=== PATIENT | female | born 1985 | race American Indian/Alaskan Native ===

== ENCOUNTER 2018-11-25 14:11 | Emergency (ER) | payer SELFPAY ==
--- NOTE | 2018-11-25 14:53 | Emergency Department Report ---
Blank Doc - Documentation Documentation: This is a 33-year-old female that presents with chest pain. Denies any SOB. This initial assessment/diagnostic orders/clinical plan/treatment(s) is/are subject to change based on patient's health status, clinical progression and re- assessment by fellow clinical providers in the ED. Further treatment and workup at subsequent clinical providers discretion. Patient/guardians urged not to elope from the ED as their condition may be serious if not clinically assessed and managed. Initial orders include: 1- Patient sent to [facility] for further evaluation and treatment 2- labs 3- EKG 4- CXR
[2018-11-25 15:30] LABS: Basophils # (Auto) 0.1 K/mm3 (0.0-0.1); Basophils % (Auto) 0.8 % (0.0-1.8); Eosinophils % (Auto) 0.5 % (0.0-4.3); Hematocrit 34.6 % (30.3-42.9); Hemoglobin 11.7 gm/dl (10.1-14.3); Lymphocytes # (Auto) 3.5 K/mm3 (1.2-5.4); Lymphocytes % (Auto) 48.1 % (13.4-35.0); Mean Corpuscular HGB Conc 34 % (30-34); Mean Corpuscular Volume 91 fl (79-97); Monocytes # (Auto) 0.4 K/mm3 (0.0-0.8); Monocytes % (Auto) 6.2 % (0.0-7.3); Platelet Count 199 K/mm3 (140-440); Red Blood Count 3.81 M/mm3 (3.65-5.03); Red Cell Distribution Width 13.6 % (13.2-15.2)
[2018-11-25 15:39] LABS: BUN/Creatinine Ratio 20; Blood Urea Nitrogen 16 mg/dL (7-17); Calcium 9.1 mg/dL (8.4-10.2); Hemolysis Index 6; INR 1.04 (0.87-1.13)
[2018-11-25 15:40] LABS: Partial Thromboplastin Time 26.5 Sec. (24.2-36.6)
--- NOTE | 2018-11-25 16:48 | XRay Report ---
PROCEDURE: XR CHEST ROUTINE 2V TECHNIQUE: PA and lateral chest radiographs were obtained. HISTORY: Chest Pain COMPARISONS: None. FINDINGS: Heart: Normal. Mediastinum/Vessels: Normal. Lungs/Pleural space: Normal. Bony thorax: No acute osseous abnormality. IMPRESSION: Normal examination. This document is electronically signed by Arya Ramos MD., November 25 2018 04:46:16 PM ET
--- NOTE | 2018-11-25 18:24 | Emergency Department Report ---
ED Chest Pain HPI - General Chief Complaint: Chest Pain Stated Complaint: LEO/CHEST PAIN Time Seen by Provider: 11/25/18 14:52 Source: patient Mode of arrival: Ambulatory Limitations: No Limitations - History of Present Illness Initial Comments: This is a 33-year-old female with no prior medical history who takes no medications for any medical problems presents to ED complaining of left-sided sharp, intermittent pain localized to her left chest area with no radiation. Patient states the first occurrence. She denies trauma, fever, chills, nausea, vomiting, abdominal pain, cough MD Complaint: chest pain -: Sudden Pain Location: left chest Pain Radiation: none Severity: mild Severity scale (0 -10): 4 Quality: aching, sharp Worsens With: nothing Other Symptoms: denies: cough, fever, rash - Related Data Home Medications Medication Instructions Recorded Confirmed Last Taken Norgestimate-Ethinyl Estradiol 1 each PO DAILY 12/18/15 12/27/15 12/26/15 [Bdo-Ef-Oxhcuphq Tablet] Previous Rx's Medication Instructions Recorded Last Taken Type HYDROcodone/APAP 5-325 [[place] 1 each PO Q6HR PRN #30 tablet 12/27/15 Unknown Rx 5/325] Ibuprofen [Motrin 600 MG tab] 600 mg PO Q8H PRN #30 tablet 12/27/15 Unknown Rx Cyclobenzaprine [Flexeril] 10 mg PO QHS PRN #15 tablet 11/25/18 Unknown Rx Naproxen [Naprosyn TAB] 500 mg PO BID #30 tablet 11/25/18 Unknown Rx Allergies Allergy/AdvReac Type Severity Reaction Status Date / Time No Known Allergies Allergy Verified 12/18/15 16:05 Heart Score - HEART Score History: Slightly suspicious EKG: Normal Age: < 45 Risk factors: No known risk factors Troponin: < normal limit HEART Score: 0 ED Review of Systems ROS: Stated complaint: LEO/CHEST PAIN Other details as noted in HPI Comment: All other systems reviewed and negative ED Past Medical Hx - Past Medical History Previous Medical History?: Yes Hx Hypertension: No Hx Heart Attack/AMI: No Hx Liver Disease: No Hx Renal Disease: No Hx Headaches / Migraines: Yes Hx Seizures: No Hx Asthma: No - Surgical History Past Surgical History?: No - Social History Smoking Status: Never Smoker Substance Use Type: None - Medications Home Medications: Home Medications Medication Instructions Recorded Confirmed Last Taken Type Norgestimate-Ethinyl Estradiol 1 each PO DAILY 12/18/15 12/27/15 12/26/15 History [Wax-Pv-Edkzvnwd Tablet] HYDROcodone/APAP 5-325 [[place] 1 each PO Q6HR PRN #30 tablet 12/27/15 Unknown Rx 5/325] Ibuprofen [Motrin 600 MG tab] 600 mg PO Q8H PRN #30 tablet 12/27/15 Unknown Rx Cyclobenzaprine [Flexeril] 10 mg PO QHS PRN #15 tablet 11/25/18 Unknown Rx Naproxen [Naprosyn TAB] 500 mg PO BID #30 tablet 11/25/18 Unknown Rx ED Physical Exam - General Limitations: No Limitations General appearance: alert, in no apparent distress - Head Head exam: Present: atraumatic, normocephalic - Eye Eye exam: Present: normal appearance - ENT ENT exam: Present: mucous membranes moist - Neck Neck exam: Present: normal inspection - Respiratory Respiratory exam: Present: normal lung sounds bilaterally. Absent: respiratory distress - Cardiovascular Cardiovascular Exam: Present: regular rate, normal rhythm. Absent: systolic murmur, diastolic murmur, rubs, gallop - GI/Abdominal GI/Abdominal exam: Present: soft, normal bowel sounds - Extremities Exam Extremities exam: Present: normal inspection - Back Exam Back exam: Present: normal inspection - Neurological Exam Neurological exam: Present: alert, oriented X3 - Psychiatric Psychiatric exam: Present: normal affect, normal mood - Skin Skin exam: Present: warm, dry, intact, normal color. Absent: rash ED Course Vital Signs 11/25/18 11/25/18 14:52 18:36 Temperature 98.6 F 98.5 F Pulse Rate 66 72 Respiratory 16 17 Rate Blood Pressure 150/81 Blood Pressure 122/62 [Left] O2 Sat by Pulse 100 100 Oximetry CELIA score - Celia Score Age > 65: (0) No Aspirin use within the Past 7 Days: (0) No 3 or more CAD Risk Factors: (0) No 2 or more Angina events in past 24 hrs: (0) No Known CAD with more than 50% Stenosis: (0) No Elevated Cardiac Markers: (0) No ST Deviation Greater than 0.5mm: (0) No CELIA Score: 0 ED Medical Decision Making - Lab Data Result diagrams: 11/25/18 14:59 11/25/18 14:59 - EKG Data EKG shows normal: sinus rhythm Rate: normal - EKG Data Interpretation: no acute changes - Medical Decision Making Patient presents with atypical chest pain. All labs are within normal limits, troponin negative, chest x-ray negative, discussed all findings with the patient. EKG was sinus rhythm as noted above. Discussed follow-up with primary care physician. Immunization no acute distress she sitting in the ED chair comfortably. She understands instructions given and will follow-up. Critical care attestation.: If time is entered above; I have spent that time in minutes in the direct care of this critically ill patient, excluding procedure time. ED Disposition Clinical Impression: Costochondral chest pain, Myalgia Disposition: TO HOME OR SELFCARE Is pt being admited?: No Does the pt Need Aspirin: No Condition: Stable Instructions: Chest Pain (ED), Costochondritis (ED) Additional Instructions: Make sure to follow up with the primary care physician as discussed. Take all your medications as you've been prescribed. If you have any worsening symptoms or develop new symptoms please return to ED immediately. Prescriptions: Cyclobenzaprine [Flexeril] 10 mg PO QHS PRN #15 tablet PRN Reason: Muscle Spasm Naproxen [Naprosyn TAB] 500 mg PO BID #30 tablet Referrals: PRIMARY CAREMD [Referring] - 3-5 Days ADIS SON MD [Referring] - 3-5 Days [facility] [Provider Group] - 3-5 Days Forms: Work/School Release Form(ED) Time of Disposition: 18:31
[2018-11-25 18:38] VITALS: BP 122/62
== END 2018-11-25 18:39 | disposition home or self-care (01) ==
LOC: ED 14:11
DX: M94.0 Chondrocostal junction syndrome [Tietze] (principal); M79.10 Myalgia, unspecified site; G43.909 Migraine, unspecified, not intractable, without status migrainosus
CPT/HCPCS: 36415; 71046; 80048; 84484; 84703; 85025; 85610; 85730; 93005; 93010; 99284

== ENCOUNTER 2021-05-11 22:05 | Emergency (ER) | payer MEDICAID ==
[2021-05-11 22:14] VITALS: BP 126/80
[2021-05-11] MEDS ORDERED: HYDROcodone/ACETAMINOPHEN 5-325 MG TAB PO ONE (22:16)
--- NOTE | 2021-05-11 22:22 | Emergency Department Report ---
ED General Adult HPI - General Chief complaint: Fall Stated complaint: fall Time Seen by Provider: 05/11/21 22:15 Source: patient Mode of arrival: Wheelchair Limitations: No Limitations - History of Present Illness Initial comments: Patient 35-year-old female who presents status post fall down 3 steps tonight at home she complains of left thumb pain and swelling left ankle pain and swelling states unable to ambulate. Patient arrived to ED via POV and family member who assisted patient into ED. She states pain is 8/10 to the left ankle and left thumb pain with burning tingling patient denies neck or low back pain there was no LOC. Patient recalls entire event. Pain is exacerbated by attempted weightbearing and movement. Is relieved by nothing. There is no abrasion laceration or bleeding. Severity scale (0 -10): 10 - Related Data Home Medications Medication Instructions Recorded Confirmed Last Taken Norgestimate-Ethinyl Estradiol 1 each PO DAILY 12/18/15 12/27/15 12/26/15 [Gfa-Zm-Zupcsxmu Tablet] Previous Rx's Medication Instructions Recorded Last Taken Type HYDROcodone/APAP 5-325 [[place] 1 each PO Q6HR PRN #30 tablet 12/27/15 Unknown Rx 5/325] Ibuprofen [Motrin 600 MG tab] 600 mg PO Q8H PRN #30 tablet 12/27/15 Unknown Rx Cyclobenzaprine [Flexeril] 10 mg PO QHS PRN #15 tablet 11/25/18 Unknown Rx Naproxen [Naprosyn TAB] 500 mg PO BID #30 tablet 11/25/18 Unknown Rx Naproxen 500 mg PO BID PRN #30 tablet 05/11/21 Unknown Rx Allergies Allergy/AdvReac Type Severity Reaction Status Date / Time No Known Allergies Allergy Verified 12/18/15 16:05 ED Review of Systems ROS: Stated complaint: fall Other details as noted in HPI Constitutional: denies: chills, fever Eyes: denies: eye pain, eye discharge, vision change ENT: denies: ear pain, throat pain Respiratory: denies: cough, shortness of breath, wheezing Cardiovascular: denies: chest pain, palpitations Endocrine: no symptoms reported Gastrointestinal: denies: abdominal pain, nausea, diarrhea Genitourinary: denies: urgency, dysuria, discharge Musculoskeletal: joint swelling, other (Left ankle and thumb pain) Skin: denies: rash, lesions Neurological: denies: headache, weakness, numbness, paresthesias, confusion, vertigo Psychiatric: denies: anxiety, depression Hematological/Lymphatic: denies: easy bleeding, easy bruising ED Past Medical Hx - Past Medical History Hx Hypertension: No Hx Heart Attack/AMI: No Hx Liver Disease: No Hx Renal Disease: No Hx Headaches / Migraines: Yes Hx Seizures: No Hx Asthma: No - Social History Smoking Status: Never Smoker Substance Use Type: None - Medications Home Medications: Home Medications Medication Instructions Recorded Confirmed Last Taken Type Norgestimate-Ethinyl Estradiol 1 each PO DAILY 12/18/15 12/27/15 12/26/15 History [Ejc-Fu-Rpgthuhi Tablet] HYDROcodone/APAP 5-325 [[place] 1 each PO Q6HR PRN #30 tablet 12/27/15 Unknown Rx 5/325] Ibuprofen [Motrin 600 MG tab] 600 mg PO Q8H PRN #30 tablet 12/27/15 Unknown Rx Cyclobenzaprine [Flexeril] 10 mg PO QHS PRN #15 tablet 11/25/18 Unknown Rx Naproxen [Naprosyn TAB] 500 mg PO BID #30 tablet 11/25/18 Unknown Rx Naproxen 500 mg PO BID PRN #30 tablet 05/11/21 Unknown Rx ED Physical Exam - General Limitations: No Limitations General appearance: alert, in no apparent distress - Head Head exam: Present: normocephalic, normal inspection - Eye Eye exam: Present: normal appearance, PERRL, EOMI. Absent: conjunctival injection, nystagmus Pupils: Present: normal accommodation - ENT ENT exam: Present: mucous membranes moist - Neck Neck exam: Present: normal inspection, tenderness (No post vertebral point tenderness no crepitus no deformity range of motion is intact and unrestricted to all quadrants ant), full ROM - Respiratory Respiratory exam: Present: normal lung sounds bilaterally. Absent: respiratory distress, wheezes, chest wall tenderness - Cardiovascular Cardiovascular Exam: Present: regular rate, normal rhythm, normal heart sounds. Absent: systolic murmur, diastolic murmur, rubs, gallop - GI/Abdominal GI/Abdominal exam: Present: soft, normal bowel sounds. Absent: distended, tenderness, guarding, rebound, rigid, bruit, hernia - Rectal Rectal exam: Present: deferred - Expanded Upper Extremity Exam Left Hand Wrist exam: Present: tenderness, swelling (Left thumb no erythema no deformity mild swelling) Neuro motor exam: Present: wrist extension intact, thumb opposition intact, thumb IP flexion intact, thumb adduction intact, fingers 2-5 abduction intact Neurosensory exam: Present: radial nerve intact Vascular: Present: normal capillary refill - Expanded Lower Extremity Exam Left Ankle exam: Present: tenderness, swelling. Absent: abrasion, laceration, ecc hymosis, deformity, crepidus, dislocation, erythema, anterior draw sign Foot/Toe exam: Present: full ROM, tenderness, swelling. Absent: abrasion, laceration, ecchymosis, deformity, crepidus Neuro vascular tendon exam: Absent: pulse deficit, motor deficit, sensory deficit, tendon deficit Gait: Positive: observed and limited by pain - Back Exam Back exam: Present: normal inspection, full ROM. Absent: muscle spasm, paraspinal tenderness, vertebral tenderness - Neurological Exam Neurological exam: Present: alert, oriented X3, CN II-XII intact, reflexes normal. Absent: motor sensory deficit - Expanded Neurological Exam Expanded Patient oriented to: Present: person, place, time Speech: Present: fluid speech Motor strength exam: RUE: 5, LUE: 5, RLE: 5, LLE: 5 DTR: ankle (R): 1+, ankle (L): 1+ Best Eye Response ([place]): (4) open spontaneously Best Motor Response ([place]): (6) obeys commands Best Verbal Response ([place]): (5) oriented [place] Total: 15 - Psychiatric Psychiatric exam: Present: normal affect - Skin Skin exam: Present: warm, dry, intact, normal color. Absent: rash ED Course Vital Signs 05/11/21 22:07 Temperature 98.4 F Pulse Rate 76 Respiratory 20 Rate Blood Pressure 126/80 [Right] O2 Sat by Pulse 100 Oximetry ED Medical Decision Making - Radiology Data Radiology results: report reviewed, image reviewed LEFT HAND 3 VIEWS INDICATION / CLINICAL INFORMATION: Fall with left thumb swelling. COMPARISON: None available. FINDINGS: BONES / JOINT(S): No acute fracture or subluxation. No significant arthritis. SOFT TISSUES: No significant abnormality. ADDITIONAL FINDINGS: None. IMPRESSION: No acute abnormality is identified. Signer Name: Venkata Lopez MD Signed: 05/11/2021 11:07 PM Workstation Name: [id number] Transcribed By: RT Dictated By: Venkata Lopez MD Electronically Authenticated By: Venkata Lopez MD Signed Date/Time: 05/11/212306 LEFT ANKLE 3 VIEWS INDICATION / CLINICAL INFORMATION: Fall with left ankle pain and swelling. COMPARISON: None available. FINDINGS: BONES / JOINT(S): There are tiny dorsal and plantar calcaneal spurs. There is a multipartite os peroneum. There is no evidence of acute fracture or subluxation. SOFT TISSUES: There is mild generalized soft tissue swelling or soft tissue prominence. ADDITIONAL FINDINGS: None. IMPRESSION: No acute osseous abnormality is identified. Signer Name: Venkata Lopez MD Signed: 05/11/2021 11:08 PM Workstation Name: [id number] Transcribed By: RT Dictated By: Venkata Lopez MD Electronically Authenticated By: Venkata Lopez MD Signed Date/Time: 05/11/212307 - Medical Decision Making X-rays negative for fracture there is no subluxation no dislocation noted x- rays. Pain is improved with medications given in ED plan DC to home, moist heat exercises for low back. Follow-up with primary care doctor in 2 to 3 days. Return to emergency department should symptoms worsen. Patient verbalized agreement and understanding with same, patient will follow up with primary care doctor in 2 to 3 days. Patient will continue to hydrate, as directed. Patient will follow-up with PCP in 2 to 3 days. Critical care attestation.: If time is entered above; I have spent that time in minutes in the direct care of this critically ill patient, excluding procedure time. ED Disposition Clinical Impression: Fall Qualifiers: Encounter type: initial encounter Qualified Code(s): W19.XXXA - Unspecified fall, initial encounter Left thumb sprain Qualifiers: Encounter type: initial encounter Sprain of finger site: metacarpophalangeal joint Qualified Code(s): S63.642A - Sprain of metacarpophalangeal joint of left thumb, initial encounter Left ankle sprain Qualifiers: Encounter type: initial encounter Involved ligament of ankle: posterior talofibular ligament Qualified Code(s): S93.492A - Sprain of other ligament of left ankle, initial encounter Disposition: HOME / SELF CARE / HOMELESS Is pt being admited?: No Does the pt Need Aspirin: No Condition: Stable Instructions: Finger Sprain (ED), Finger Sprain, Adult, [id number], How to Use a Stirrup Ankle Brace, Egse-hh-Toyt, Thumb Sprain Additional Instructions: Take medications as prescribed, follow-up with your primary care doctor in 2 to 3 days. Use Roger and crutches as directed. Prescriptions: Naproxen 500 mg PO BID PRN #30 tablet PRN Reason: pain Referrals: SHASTA SCHROEDER MD [Staff Physician] - 3-5 Days Forms: Work/School Release Form(ED)
--- NOTE | 2021-05-11 23:11 | XRay Report ---
LEFT HAND 3 VIEWS INDICATION / CLINICAL INFORMATION: Fall with left thumb swelling. COMPARISON: None available. FINDINGS: BONES / JOINT(S): No acute fracture or subluxation. No significant arthritis. SOFT TISSUES: No significant abnormality. ADDITIONAL FINDINGS: None. IMPRESSION: No acute abnormality is identified. Signer Name: Venkata Lopez MD Signed: 05/11/2021 11:07 PM Workstation Name: [id number]
--- NOTE | 2021-05-11 23:13 | XRay Report ---
LEFT ANKLE 3 VIEWS INDICATION / CLINICAL INFORMATION: Fall with left ankle pain and swelling. COMPARISON: None available. FINDINGS: BONES / JOINT(S): There are tiny dorsal and plantar calcaneal spurs. There is a multipartite os peron eum. There is no evidence of acute fracture or subluxation. SOFT TISSUES: There is mild generalized soft tissue swelling or soft tissue prominence. ADDITIONAL FINDINGS: None. IMPRESSION: No acute osseous abnormality is identified. Signer Name: Venkata Lopez MD Signed: 05/11/2021 11:08 PM Workstation Name: [id number]
== END 2021-05-12 00:37 | disposition home or self-care (01) ==
LOC: ED 22:05
DX: S63.642A Sprain of metacarpophalangeal joint of left thumb, initial encounter (principal); S93.492A Sprain of other ligament of left ankle, initial encounter; W19.XXXA Unspecified fall, initial encounter; Y93.89 Activity, other specified; Y92.89 Other specified places as the place of occurrence of the external cause; Y99.8 Other external cause status
CPT/HCPCS: 99283

== ENCOUNTER 2021-07-25 07:56 | Emergency (ER) | payer MEDICAID ==
[2021-07-25 08:02] VITALS: BP 141/83
[2021-07-25] MEDS ORDERED: KETOROLAC 10 MG TAB PO ONE (11:19)
[2021-07-25] MEDS ORDERED: DEXAMETHASONE 4 MG TAB PO ONE (11:19)
--- NOTE | 2021-07-25 11:26 | XRay Report ---
CHEST 2 VIEWS INDICATION: hemoptysis. COMPARISON: 11/25/2018 FINDINGS: Support devices: None. Heart: Within normal limits. Lungs/pleura: No acute air space or interstitial disease. No pleural abnormality or pneumothorax. Additional findings: None. IMPRESSION: No acute findings. No change since 11/25/2018. Signer Name: Maurizio Londono Jr, MD Signed: 07/25/2021 11:22 AM Workstation Name: [id number]
--- NOTE | 2021-07-25 11:37 | Emergency Department Report ---
- General Chief Complaint: Upper Respiratory Infection Stated Complaint: SPITTING BLOOD Time Seen by Provider: 07/25/21 09:37 Source: patient Mode of arrival: Ambulatory Limitations: No Limitations - History of Present Illness Initial Comments: 35-year-old female with no past medical history presents to the emergency department for 7-day history of persistent cough. She states that over the past 1 day that she has had blood streaks in her cough. She also states that she has had headache runny nose and she had a fever on day #1,a subjective fever but has not had a fever since then. She states that she has pain when she coughs only. But denies shortness of breath nausea vomiting dizziness and chest pain. MD Complaint: cough, rhinorrhea, nasal congestion -: Gradual, days(s) (7) Severity: moderate Associated Symptoms: fever, headache, rhinorrhea, nasal congestion, cough. denies: chills, myalgias, sore throat, chest pain, shortness of breath, nausea, vomiting, diarrhea, rash, ear pain Treatments Prior to Arrival: Acetaminophen - Related Data Home Medications Medication Instructions Recorded Confirmed Last Taken Norgestimate-Ethinyl Estradiol 1 each PO DAILY 12/18/15 12/27/15 12/26/15 [[id number] Tablet] Previous Rx's Medication Instructions Recorded Last Taken Type HYDROcodone/APAP 5-325 [Holden 1 each PO Q6HR PRN #30 tablet 12/27/15 Unknown Rx 5/325] Ibuprofen [Motrin 600 MG tab] 600 mg PO Q8H PRN #30 tablet 12/27/15 Unknown Rx Cyclobenzaprine [Flexeril] 10 mg PO QHS PRN #15 tablet 11/25/18 Unknown Rx Naproxen [Naprosyn TAB] 500 mg PO BID #30 tablet 11/25/18 Unknown Rx Naproxen 500 mg PO BID PRN #30 tablet 05/11/21 Unknown Rx Naproxen [Naprosyn] 500 mg PO BID PRN #14 tab 07/25/21 Unknown Rx guaiFENesin/CODEINE [Robitussin AC] 5 ml PO TID PRN #60 ml 07/25/21 Unknown Rx methylPREDNISolone [Medrol 4MG 4 mg PO DAILY #1 pack 07/25/21 Unknown Rx DOSEPAK (21 tabs)] Allergies Allergy/AdvReac Type Severity Reaction Status Date / Time No Known Allergies Allergy Verified 07/25/21 07:57 ED Review of Systems ROS: Stated complaint: SPITTING BLOOD Other details as noted in HPI Comment: All other systems reviewed and negative Constitutional: fever. denies: chills, malaise, weakness Eyes: denies: eye pain, eye discharge ENT: congestion. denies: ear pain, throat pain, dental pain Respiratory: cough. denies: shortness of breath, SOB with exertion, SOB at rest, wheezing Cardiovascular: denies: chest pain, dyspnea on exertion, edema, syncope Endocrine: no symptoms reported Gastrointestinal: denies: abdominal pain, nausea, vomiting, hematemesis, melena, hematochezia Genitourinary: denies: urgency, dysuria, frequency, hematuria, discharge Musculoskeletal: myalgia. denies: back pain Skin: denies: rash, lesions Neurological: headache. denies: weakness ED Past Medical Hx - Past Medical History Hx Hypertension: No Hx Heart Attack/AMI: No Hx Liver Disease: No Hx Renal Disease: No Hx Headaches / Migraines: Yes Hx Seizures: No Hx Asthma: No - Surgical History Past Surgical History?: No - Social History Smoking Status: Never Smoker Substance Use Type: None - Medications Home Medications: Home Medications Medication Instructions Recorded Confirmed Last Taken Type Norgestimate-Ethinyl Estradiol 1 each PO DAILY 12/18/15 12/27/15 12/26/15 History [Acu-[id number]-Auonzxsu Tablet] HYDROcodone/APAP 5-325 [Holden 1 each PO Q6HR PRN #30 tablet 12/27/15 Unknown Rx 5/325] Ibuprofen [Motrin 600 MG tab] 600 mg PO Q8H PRN #30 tablet 12/27/15 Unknown Rx Cyclobenzaprine [Flexeril] 10 mg PO QHS PRN #15 tablet 11/25/18 Unknown Rx Naproxen [Naprosyn TAB] 500 mg PO BID #30 tablet 11/25/18 Unknown Rx Naproxen 500 mg PO BID PRN #30 tablet 05/11/21 Unknown Rx Naproxen [Naprosyn] 500 mg PO BID PRN #14 tab 07/25/21 Unknown Rx guaiFENesin/CODEINE [Robitussin AC] 5 ml PO TID PRN #60 ml 07/25/21 Unknown Rx methylPREDNISolone [Medrol 4MG 4 mg PO DAILY #1 pack 07/25/21 Unknown Rx DOSEPAK (21 tabs)] ED Physical Exam - General Limitations: No Limitations General appearance: alert, in no apparent distress - Head Head exam: Present: atraumatic, normocephalic - Eye Eye exam: Absent: conjunctival injection - ENT ENT exam: Present: other (bilateral nasal passage swelling. ) - Expanded ENT Exam Expanded Mouth exam: Present: normal external inspection. Absent: drooling Throat exam: Positive: other (erythema to oropharynx. ). Negative: tonsillar exudate, R peritonsillar mass, L peritonsillar mass - Respiratory Respiratory exam: Present: normal lung sounds bilaterally, chest wall tenderness. Absent: respiratory distress, wheezes, accessory muscle use - Cardiovascular Cardiovascular Exam: Present: regular rate - GI/Abdominal GI/Abdominal exam: Present: soft. Absent: distended, tenderness, guarding, rebound - Extremities Exam Extremities exam: Present: normal inspection. Absent: full ROM - Back Exam Back exam: Present: normal inspection. Absent: full ROM, tenderness, CVA tenderness (R), CVA tenderness (L) - Neurological Exam Neurological exam: Present: alert, oriented X3 - Psychiatric Psychiatric exam: Present: normal affect, normal mood - Skin Skin exam: Present: warm, dry, intact ED Course Vital Signs 07/25/21 08:00 Temperature 98.4 F Pulse Rate 77 Respiratory 20 Rate Blood Pressure 141/83 O2 Sat by Pulse 96 Oximetry ED Medical Decision Making - Radiology Data Radiology results: report reviewed, image reviewed - Medical Decision Making 35-year-old female with no past medical history presents to the emergency department for 7-day history of persistent cough. She states that over the past 1 day that she has had blood streaks in her cough. She also states that she has had headache runny nose and she had a fever on day #1,a subjective fever but has not had a fever since then. She states that she has pain when she coughs only. But denies shortness of breath nausea vomiting dizziness and chest pain. Chest x-ray within normal patient will be treated for upper respiratory infection with steroid pack cough suppressant and anti-inflammatory. She is encouraged to follow-up with her primary care provider if no improvement or worsening symptoms. Plan reviewed with patient and she verbalized understanding and agreement with. Critical care attestation.: If time is entered above; I have spent that time in minutes in the direct care of this critically ill patient, excluding procedure time. ED Disposition Clinical Impression: URI with cough and congestion Disposition: 01 HOME / SELF CARE / HOMELESS Is pt being admited?: No Does the pt Need Aspirin: No Condition: Stable Instructions: Viral Respiratory Infection, [id number], Cough, Adult, [id number] Additional Instructions: Take medications as prescribed. Drink plenty of noncaffeinated fluids. Follow- up with primary care provider if no improvement or worsening symptoms. Prescriptions: methylPREDNISolone [Medrol 4MG DOSEPAK (21 tabs)] 4 mg PO DAILY #1 pack Naproxen [Naprosyn] 500 mg PO BID PRN #14 tab PRN Reason: Pain, Moderate (4-6) guaiFENesin/CODEINE [Robitussin AC] 5 ml PO TID PRN #60 ml PRN Reason: Cough Referrals: PRIMARY CARE, [Primary Care Provider] - 3-5 Days Forms: Work/School Release Form(ED)
[2021-07-25] MEDS: BENZONATATE 100 MG CAP PO ONE ×2 (12:08→12:12)
== END 2021-07-25 15:50 | disposition home or self-care (01) ==
LOC: ED 07:56
DX: J06.9 Acute upper respiratory infection, unspecified (principal); G43.909 Migraine, unspecified, not intractable, without status migrainosus; Z79.899 Other long term (current) drug therapy
CPT/HCPCS: 71046; 99283; J8540